=== PATIENT | female | born 1970 | race Caucasian/White ===

== ENCOUNTER 2025-04-20 15:19 | Outpatient (CLI) | payer BC | END 2025-04-20 15:20 | disposition home or self-care (01) | LOC: CSHMRI 15:19 | PROVIDERS: ATTEND Family Medicine Sports Medicine | DX: M25.561 Pain in right knee (principal); S83.241A Other tear of medial meniscus, current injury, right knee, initial encounter; M94.8X6 Other specified disorders of cartilage, lower leg ==